=== PATIENT | male | born 1945 | race Caucasian/White ===

== ENCOUNTER → 2016-11-17 | Outpatient (CLI) | payer MEDICARE ==
[~2016-11-17] MED LIST: LORTAB 5/3251 TAB PO; ROPINIROLE HYD0.5 MG PO; TAMSULOSIN HYD0.4 MG PO; TRAMADOL HYDRO200 MG PO; Triglide160 MG PO
[2016-11-17 08:23] LABS: LYMPH # 1.6 K/mm3 (0.7-4.5); LYMPH % 40.1 % (10-50)
[2016-11-17 08:24] LABS: HEMOGLOBIN 14.4 g/dL (14.1-18.0)
[2016-11-17 10:04] LABS: BUN 14 mg/dL (7-18)
[2016-11-17 10:07] LABS: GFR (ESTIMATED) 84 ML/MIN (>60); PROSTATE-SPECIFIC ANTIGEN F/U 4.4 ng/mL (0.0-4.0)
== END ==
LOC: LAB 08:04
PROVIDERS: Nurse Practitioner Family
DX: E78.00 Pure hypercholesterolemia, unspecified (principal); J06.9 Acute upper respiratory infection, unspecified; R97.20 Elevated prostate specific antigen [PSA]

== ENCOUNTER → 2017-08-11 | Outpatient (CLI) | payer MEDICARE ==
--- NOTE | 2017-08-11 11:42 | RADIOLOGY REPORT PS360 ---
KNEE-LIMITED 2 VIEWS-RT HISTORY: POST OP FU ORDERING PHYSICIAN: Meng Garcia MD PATIENT AGE: 72 years COMPARISON: 12/03/2015 FINDINGS: Status post total knee replacement. Good alignment. No evidence of orthopedic complications. IMPRESSION: No change status post total knee replacement with no radiographic evidence of complications
== END ==
LOC: RAD 10:00
DX: M25.561 Pain in right knee (principal); Z48.89 Encounter for other specified surgical aftercare